=== PATIENT | male | born 1995 | race Caucasian/White ===

== ENCOUNTER 2024-04-10 08:58 | Emergency (ER) | payer BC, SELFPAY ==
--- NOTE | ~2024-04-10 | XR_ITS ---
EXAMINATION: XR chest 2V DATE: 04/10/2024 10:26 INDICATION: Left chest tightness. Acid reflux. TECHNIQUE: Frontal and lateral views of the chest were obtained. COMPARISON: None. FINDINGS: There is no pneumonia, pleural effusion, or pneumothorax. The heart size is normal. IMPRESSION: 1. No acute cardiopulmonary disease. Reviewed, dictated and finalized at location A. ON GR[facility]
[2024-04-10 09:07] VITALS: BP 136/84; PULSE 87; RESP 16; TEMP 37.1; O2SAT 98
--- NOTE | 2024-04-10 09:10 | ECG_ITS ---
Test Date: 2024-04-10 09:28:08 Measurements Intervals [place] Rate: 71 P: 25 IA: 172 QRS: 11 QRSD: 94 T: 17 QT: 376 QTc: 410 Interpretive Statements SINUS RHYTHM WITH SINUS ARRHYTHMIA VOLTAGE CRITERIA FOR LVH MINIMAL Q WAVES- HIGH LATERAL LEADS BORDERLINE ECG No previous ECG available for comparison Electronically Signed On 04-10-2024 09:37:16 SLEEVE PRESSER OPERATOR by Lucio Morillo D.O.
--- OUTSIDE RECORDS SUMMARY | 2024-04-10 09:37 | XMS_ITS | Clinical Summary ---
Author Organization [facility] Address [address] [place] [id number] Care Team Providers Care Nurses Director Name Role Phone Unavailable Primary Care Provider Unavailabl e Social History Tobacco Use Types Packs/Day Years Used Date Smoking Tobacco: Never Assessed Sex and Gender Information Value Date Recorded Sex Assigned at Not on file Legal Sex Male 12:23 PM GROUP LE[employer] Gender Identity Not on file Sexual Orientation Not on file Plan of Treatment Health Maintenance Due Date Last Done Comments Hepatitis C Virus (HCV) Screening 1996 Influenza Immunization (#1) 10/29/202310/28, 01/19/2015, 12/20/2013, Additional history exists SARS-COV-2 Immunization (2023- season) 2023 Respiratory Syncytial Virus (RSV) Immunization (Adult) (1 - 1-dose 75+ series) 08/20/2071 Hepatitis B Immunization Completed 997, 1996, 1996 Human Papillomavirus (HPV) Immunization Discontinued 08/23/2012, 03/01/2012, 12/22/2011 Meningococcal Immunization (ACWY) Completed 08/23/2012, 10/04/2007 DTaP/Tdap/Td Immunization Discontinued 2018, 10/04/2007, 06/23/2001, Additional history exists TdaP Immunization Completed 10/12/2018, 10/04/2007 Pneumococcal Immunization Combined Aged Out No longer eligible based on patient's age to complete this topic Rotavirus Immunization Aged Out No lo nger eligible based on patient's age to complete this topic
--- OUTSIDE RECORDS SUMMARY | 2024-04-10 09:37 | XMS_ITS | Clinical Summary ---
Author Organization [facility] Address [address] [place] [address] Care Team Providers Care Co Supervisor [employer] Name Role Phone Unavailable Primary Care Provider Unavailabl e Social History Tobacco Use Types Packs/Day Years Used Date Smoking Tobacco: Never Assessed Sex and Gender Information Value Date Recorded Sex Assigned at Not on file Legal Sex Male 8:32 PM CDT Gender Identity Not on file Sexual Orientation Not on file Plan of Treatment Health Maintenance Due Date Last Done Comments Annual Physical 08/20/1999 Hepatitis C 2014 DTaP, Tdap and Td Vaccines ( 1 - Tdap) 08/20/2015 Hepatitis B Vaccines (1 of 3 - 19+ 3-dose series) 08/20/2015 COVID-19 Vaccine (2023-2 5 season) 2023 Influenza Adult (#1) 2023 HPV Vaccines Aged Out No longer eligi ble based on patient's age to complete this topic Meningococcal B Vaccine Aged Out No l onger eligible based on patient's age to complete this topic Meningococcal Vaccine Aged Out No heladio omid eligible based on patient's age to complete this topic Pneumococcal Vaccine: Pediat rics (0 to 5 Years) and At-Risk Patients (6 to 64 Years) Aged Out No longer eligible b ased on patient's age to complete this topic RSV Immunizations Under 20 Months Aged Out No longer eligible based on patient's age to complete this topic
--- OUTSIDE RECORDS SUMMARY | 2024-04-10 09:37 | XMS_ITS | Data Portability ---
Author Organization [facility], Main Office Address [address] [place] [address] Assessment No assessment recorded. Plan of Treatment Reminders Order Date Submit Date Provider Last Modified By Organization Details Last Modified Time Details Appointments None recorded. Lab lipid panel, serum 2022 [facility] (Lab), [address] [place], [address], 20:13:25 TSH, serum or plasma 2022 023 [facility] (Lab), [address] [place], [address], 20:42:21 CBC w/ auto diff 2022 023 [facility] (Lab), [address] [place], [address], 20:01:25 vitamin B12 + folate, serum or blood 2022 023 [email or web address] [facility] (Lab), [address] [place], [address], 07:59:53 CMP, serum or plasma 2022 023 [facility] (Lab), [address] [place], [address], 20:13:21 [email or web address] obin, total, blood 2022 023 [facility] (Lab), [address], [place], [address], 21:02:07 Referral gastroenter ologist referral - Occurred in October over a period of 3 days. No issues since. Started on pepcid and bland diet and likely needs EGD. 2022 023 [email or web address] 3 Madiha Reynolds MD, [address], [address], [place], [address], 08:01:18 counseling referral 2022 023 [email or web address] 3 [facility], [address], [place], [address], 08:01:13 psychiatris t referral 2022 023 [email or web address] 3 [facility], [address] [place] [address] [address], [place], [address], 08:01:14 Procedures None recorded. Surgeries None recorded. Imaging None recorded. Medication Orders None recorded. Patient TargetsNo targets recorded. Patient Instructions Encounter Date Encounter Id Patient Instructions Last Modified By Organization Details Last Modified Time 11/29/2022 [id number] 2 mo fu insomnia , anxiety/depressio n, GI consult, lab review. [email or web address] Not available 11/29/2022 13:05:56 Reason for Referral Counseling Referral for Mixe d anxiety and depressive disorder Referring Physician: [facility], Encounter Date: 11/29/2022 Psychiatrist Referral for Mi xed anxiety and depressive disorder Referring Physician: [facility], Encounter Date: 11/29/2022 Engineering Agent Referral for Coffee ground vomiting Occurred in October over a period of 3 days. No issues since. Started on pepcid and bland diet and likely needs EGD. Referring Physician: [facility], Encounter Date: 11/29/2022 Results Created Date Observation Date Name Description Value Unit Range Abnormal Flag Note LastModifiedBy Organization Detail LastModifiedTime 12/03/1912/02/2022 CBC/C OMPLE TE BLD COUNT W/DIF F white blood cells 4.7 x10'3 /uL 4.2-10 .8 Not Available [facility] (Lab) [address] [place], [address], 12/02/2022 20:01:25 12/03/19 23 12/02/2022 CBC/C OMPLE TE BLD COUNT W/DIF F red blood cells 5.01 x10'6 /uL 4.10-5 .80 Not Available [facility] (Lab) [address] [place], [address], 12/02/2022 20:01:25 12/03/19 23 12/02/2022 CBC/C OMPLE TE BLD COUNT W/DIF F hemoglobin 15.4 g/dL 13.2-1 7.0 Not Available [facility] (Lab) [address] [place], [address], 12/02/2022 20:01:25 12/03/19 23 12/02/2022 CBC/C OMPLE TE BLD COUNT W/DIF F hematocrit 45.9 % 39.3-5 0.0 Not Available [facility] (Lab) [address] [place], [address], 12/02/2022 20:01:25 12/03/19 23 12/02/2022 CBC/C OMPLE TE BLD COUNT W/DIF F mean red cell volume 91.6 fL 80.0-9 7.0 Not Available [facility] (Lab) [address] [place], [address], 12/02/2022 20:01:25 12/03/19 23 12/02/2022 CBC/C OMPLE TE BLD COUNT W/DIF F mean red cell hemoglobin 30.7 pg 27.0-3 3.0 Not Available [facility] (Lab) [address] [place], [address], 12/02/2022 20:01:25 12/03/1912/02/2022 CBC/C OMPLE TE BLD COUNT W/DIF F mean RBC HGB concentratio n 33.6 g/dL 31.0-3 6.0 Not Available [facility] (Lab) [address] [place], [address], 12/02/2022 20:01:25 12/03/19 23 12/02/2022 CBC/C OMPLE TE BLD COUNT W/DIF F red cell distribution width 12.6 % 11.8-1 5.5 Not Available [facility] (Lab) [address] [place], [address], 12/02/2022 20:01:25 12/03/19 23 12/02/2022 CBC/C OMPLE TE BLD COUNT W/DIF F platelets 220 x10'3 /uL 150-40 0 Not Available [facility] (Lab) [address] [place], [address], 12/02/2022 20:01:25 12/03/19 23 12/02/2022 CBC/C OMPLE TE BLD COUNT W/DIF F mean platelet volume 11.6 fL 9.0-12 .4 Not Available [facility] (Lab) [address] [place], [address], 12/02/2022 20:01:25 12/03/19 23 12/02/2022 CBC/C OMPLE TE BLD COUNT W/DIF F neutrophils 50.4 % 39.0-7 2.0 Not Available [facility] (Lab) [address] [place], [address], 12/02/2022 20:01:25 12/03/19 23 12/02/2022 CBC/C OMPLE TE BLD COUNT W/DIF F lymphocytes 35.9 % 16.0-4 7.0 Not Available [facility] (Lab) [address] [place], [address], 12/02/2022 20:01:25 12/03/19 23 12/02/2022 CBC/C OMPLE TE BLD COUNT W/DIF F monocytes 9.5 % 5.0-12 .0 Not Available [facility] (Lab) [address] [place], [address], 12/02/2022 20:01:25 12/03/19 23 12/02/2022 CBC/C OMPLE TE BLD COUNT W/DIF F eosinophils 3.4 % 1.0-7. 0 Not Available [facility] (Lab) [address] [facility] [place], [address], 12/02/2022 20:01:25 12/03/19 23 12/02/2022 CBC/C OMPLE TE BLD COUNT W/DIF F basophils 0.6 % 0.0-2. 0 Not Available [facility] (Lab) [address] [place], [address], 12/02/2022 20:01:25 12/03/19 23 12/02/2022 CBC/C OMPLE TE BLD COUNT W/DIF F immature granulocytes 0.2 % 0.00-0 .50 Not Available [facility] (Lab) [address] [place], [address], 12/02/2022 20:01:25 12/03/19 23 12/02/2022 CBC/C OMPLE TE BLD COUNT W/DIF F neutrophils, absolute count 2.39 x10'3 /uL 1.5-8. 0 Not Available [facility] (Lab) [address] [place], [address], 12/02/2022 20:01:25 12/03/19 23 12/02/2022 CBC/C OMPLE TE BLD COUNT W/DIF F lymphocytes, absolute count 1.70 x10'3 /uL 1.07-3 .43 Not Available [facility] (Lab) [address] [place], [address], 12/02/2022 20:01:25 12/03/1912/02/2022 CBC/C OMPLE TE BLD COUNT W/DIF F monocytes, absolute count 0.45 x10'3 /uL 0.29-0 .99 Not Available [facility] (Lab) [address] [place], [address], 12/02/2022 20:01:25 12/03/1912/02/2022 CBC/C OMPLE TE BLD COUNT W/DIF F eosinophils, absolute count 0.16 x10'3 /uL 0.02-0 .53 Not Available [facility] (Lab) [address] [place], [address], 12/02/2022 20:01:25 12/03/1912/02/2022 CBC/C OMPLE TE BLD COUNT W/DIF F basophils, absolute count 0.03 x10'3 /uL 0.01-0 .08 Not Available [facility] (Lab) [address] [place], [address], 12/02/2022 20:01:25 12/03/1912/02/2022 CBC/C OMPLE TE BLD COUNT W/DIF F immature granulocytes ,absolute 0.01 x10'3 /uL 0.00-0 .05 Not Available [facility] (Lab) [address] [place], [address], 12/02/2022 20:01:25 12/03/1912/02/2022 CBC/C OMPLE TE BLD COUNT W/DIF F nucleated red blood cells 0.0 % -0 Not Available [facility] (Lab) [address] [place], [address], 12/02/2022 20:01:25 12/03/1912/02/2022 CBC/C OMPLE TE BLD COUNT W/DIF F NRBC# 0.00 x10'3 /uL Not Available [facility] (Lab) [address] [place], [address], 12/02/2022 20:01:25 12/03/19 23 12/02/2022 COMPR EHENS SUNIL METAB OLIC PANEL sodium 139 mmol/ L 137-14 5 Not Available [facility] (Lab) [address] [place], [address], 12/02/2022 20:13:21 12/03/1912/02/2022 COMPR EHENS SUNIL METAB OLIC PANEL potassium 4.9 mmol/ L 3.5-5. 1 Not Available [facility] (Lab) [address] [place], [address], 12/02/2022 20:13:21 12/03/19 23 12/02/2022 COMPR EHENS SUNIL METAB OLIC PANEL chloride 103 mmol/ L 98-107 Not Available [facility] (Lab) [address] [place], [address], 12/02/2022 20:13:21 12/03/19 23 12/02/2022 COMPR EHENS SUNIL METAB OLIC PANEL carbon dioxide 29 mmol/ L 22-30 Not Available [facility] (Lab) [address] [place], [address], 12/02/2022 20:13:21 12/03/19 23 12/02/2022 COMPR EHENS SUNIL METAB OLIC PANEL anion gap 11.9 mmol/ L 14-22 low Not Available [facility] (Lab) [address] [place], [address], 12/02/2022 20:13:21 12/03/19 23 12/02/2022 COMPR EHENS SUNIL METAB OLIC PANEL glucose 92 mg/dL 70-99 Not Available [facility] (Lab) [address] [place], [address], 12/02/2022 20:13:21 12/03/1912/02/2022 COMPR EHENS SUNIL METAB OLIC PANEL BUN 7 mg/dL 8-19 low Not Available [facility] (Lab) [address] [place], [address], 12/02/2022 20:13:21 12/03/19 23 12/02/2022 COMPR EHENS SUNIL METAB OLIC PANEL creatinine 0.86 mg/dL 0.66-1 .25 Not Available [facility] (Lab) [address] [place], [address], 12/02/2022 20:13:21 12/03/1912/02/2022 COMPR EHENS SUNIL METAB OLIC PANEL GFR >60 Refer ence Range : [place] [facility] GFR Healt hy Adult : >60 mL/mi n/1.7 3 m2 Chron ic Kidne y Disea se: 15-60 mL/mi n/1.7 3 m2 Kidne y Failu re: <15/m L/min /1.73 m2 www.n iddk. nih.g ov The MDRD study equat ion has not been valid ated in child alissa <18 years of age; pregn ant women ; the elder ly >85 years of age; or in some racia l or ethni c subgr oups, such as [employer]. Outsi de the valid ated irineo eters , estim ated GFR is less accur ate, requi ring clini clifford judgm ent on a case- by-ca se basis . Clini clifford inter preta tion for other races and ages must be made by the clini blane. The MDRD study equat ion has not been valid ated for the evalu ation of serum creat inine relat ed to nutri theron l statu s or medic ation usage . For perso ns <18 years of age, a pedia tric GFR calcu lator is avail able on the NK websi te: https ://zach w.renetta grullon.o rg/pr ofess ional s/kdo qi/gf r_cal culat or Not Available [facility] (Lab) [address] [place], [address], 12/02/2022 20:13:21 12/03/1912/02/2022 COMPR EHENS SUNIL METAB OLIC PANEL alkaline phosphatase 89 U/L 38-126 Not Available [facility] (Lab) [address] [place], [address], 12/02/2022 20:13:21 12/03/19 23 12/02/2022 COMPR EHENS SUNIL METAB OLIC PANEL alanine aminotransfe rase 29 U/L 0-50 Not Available [facility] (Lab) [address] [place], [address], 12/02/2022 20:13:21 12/03/1912/02/2022 COMPR EHENS SUNIL METAB OLIC PANEL aspartate aminotransfe rase 26 U/L 15-46 Not Available [facility] (Lab) [address] [place], [address], 12/02/2022 20:13:21 12/03/1912/02/2022 COMPR EHENS SUNIL METAB OLIC PANEL bilirubin, total 0.90 mg/dL 0.20-1 .30 Not Available [facility] (Lab) [address] [place], [address], 12/02/2022 20:13:21 12/03/19 23 12/02/2022 COMPR EHENS SUNIL METAB OLIC PANEL calcium 10.1 mg/dL 8.4-10 .2 Not Available [facility] (Lab) [address] [place], [address], 12/02/2022 20:13:21 12/03/19 23 12/02/2022 COMPR EHENS SUNIL METAB OLIC PANEL total protein 7.7 g/dL 6.3-8. 2 Not Available [facility] (Lab) [address] [place], [address], 12/02/2022 20:13:21 12/03/1912/02/2022 COMPR EHENS SUNIL METAB OLIC PANEL albumin 4.8 g/dL 3.4-5. 0 Not Available [facility] (Lab) [address] [place], [address], 12/02/2022 20:13:21 12/03/1912/02/2022 COMPR EHENS SUNIL METAB OLIC PANEL globulin 2.9 g/dL 2.6-4. 2 Not Available [facility] (Lab) [address] [place], [address], 12/02/2022 20:13:21 12/03/1912/02/2022 COMPR EHENS SUNIL METAB OLIC PANEL A/G ratio 1.7 ratio 1.0-2. 0 Not Available [facility] (Lab) [address] [place], [address], 12/02/2022 20:13:21 12/03/1912/02/2022 LIPID PANEL cholesterol 164 mg/dL 140-19 9 NIH ISSAC NSUS RECOM MENDA TION FOR LORNA STERO L: ADULT CHILD LOW RISK: <200 <170 BORDE RLINE : <200- 239 ----- HIGH RISK: >240 >200 Not Available [facility] (Lab) [address] [place], [address], 12/02/2022 20:13:25 12/03/1912/02/2022 LIPID PANEL triglyceride s 55 mg/dL 0-150 NIH ISSAC NSUS REPOR T RECOM MENDA TION FOR TRIGL YCERI TARA: ADULT CHILD LOW RISK: <150 ----- BODER LINE: 150-1 99 ----- HIGH RISK: >200 ----- Not Available [facility] (Lab) [address] [place], [address], 12/02/2022 20:13:25 12/03/19 23 12/02/2022 LIPID PANEL HDL cholesterol 47 mg/dL 40- Not Available [facility] (Lab) [address] [place], [address], 12/02/2022 20:13:25 12/03/19 23 12/02/2022 LIPID PANEL LDL cholesterol, calculated 106 mg/dL 0-130 NIH ISSAC NSUS REPOR T RECOM MENDA TIONS FOR LDL: ADULT CHILD LOW RISK <130 <110 (OPTI MAL LDL) <100 ----- BORDE RLINE : 130-1 59 ----- HIGH RISK: >160 >130 A TRIGL YCERI DE RESUL T >400 INVAL IDATE S THE CALCU LATIO N FOR LDL FRACT IONAT ION - THE LDL RESUL T WILL NOT BE REPOR MARINA. Not Available [facility] (Lab) [address] [place], [address], 12/02/2022 20:13:25 12/03/19 23 12/02/2022 TSH W/REF EVER FT4 TSH with reflex free T4 2.210 uIU/m L 0.465- 4.680 Not Available [facility] (Lab) [address] [place], [address], 12/02/2022 20:42:21 12/03/1912/02/2022 HEMOG LOBIN A1C HA1C 4.7 % 4.0-6. 0 Diabe samm Scree yaw Crite armando: <5.7% Consi stent with absen ce of diabe samm 5.7-6 .4% Consi stent with incre ased risk for diabe samm (pred iabet es) >OR=6 .5% Consi stent with diabe samm REFER ENCE: Diabe samm Care 2016, 39(Juan ppl.1 ):s13 -s22 Not Available [facility] (Lab) [address] [place], [address], 12/02/2022 21:02:07 12/03/19 23 12/02/2022 VITAM IN B12 (ACOSTA NORA ) vb12 744 pg/mL 239-93 1 Not Available [facility] (Lab) [address] [place], [address], 12/02/2022 21:09:01 12/03/1912/02/2022 FOLAT E, SERUM /PLAS MA folate 14.4 NG/mL 2.76-2 0.0 Not Available [facility] (Lab) [address] [place], [address], 12/02/2022 21:09:02 Result Notes None recorded. Problems Name Problem SNOMED Code Status Onset Date Resolution Date Notes Provider Name and Address Organization Details Recorded Time Indigestion 399080211 Active 2022 Johanna Chapa NP [address] [facility], [place], [address], Win[employer] 3 12:44:30 Impacted cerumen of bilateral ears 9278172145538 108 Active 2022 Johanna Chapa NP [address], [address], [place], [address], [employer] 3 12:47:55 Mixed anxiety and depressive disorder 781579878 Active 2022 Johanna Chapa NP [address], [address], [place], [address], [employer] 3 12:50:01 Coffee ground vomiting 74269920 Active 2022 Johanna Chapa NP [address], [address], [place], [address], [employer] 3 13:01:30 Problem Notes None recorded. Medical Equipment None Reported. Allergies No known drug allergies Medications Name Sig Start Date Stop Date Status Note LastModified by Organization Details LastModified Time clindamycin HCl 300 mg capsule TAKE 1 CAPSULE BY MOUTH TWICE A DAY FOR 10 DAYS 11/29 completed Not Available Not Available Not Available omeprazole 20 mg capsule,taryn yed release TAKE 1 CAPSULE BY MOUTH ONCE DAILY BEFORE A MEAL active Not Available Not Available No t Available Vitals Date Recorded Body weight Body mass index (BMI) Body height Body temperature Heart rate Oxygen saturation Oxygen saturation in Arterial blood by Pulse oximetry Pain severity - 0-10 verbal numeric rating [Score] - Reported Systolic blood pressure Diastolic blood pressure Provider Name and Address Organization Details Last Updated DateTime 00309.3 4 g 24.7 kg/m2 177.8 cm 96.6 [degF] 71 /min 98 % 98 % 0 118 mm[Hg] 78 mm[Hg] Johanna Joseph RN [facility] [employer] 12:24:12 Date Recorded Body height Provider Name an d Address Organization Details Last Updated DateTime 12/02/2022 177.8 cm Hawa Leija MA [facility] [employer] 12/02/2022 15:28:44 Social History Question Answer Notes LastModified by Organization Details LastModified Time Tobacco Smoking Status Former Smoker Johanna Joseph RN [facility], [facility] [employer] 11/29/2022 12:26:34 Do You Have An Advance Directive? No Information not available 11/29/2022 What Is Your Level Of Alcohol Consumption? Moderate Information not available 11/29/2022 Is Blood Transfusion Acceptable In An Emergency? Yes Information not available 11/29/2022 What Is Your Level Of Caffeine Consumption? Moderate Dr. Alcaraz Information not available 11/29/2022 What Is Your Code Status? Full Code Information not available 11/29/2022 In The 14 Days Before Symptom Onset, Have You Had Close Contact With A Laboratory-conf irmed COVID-19 While That Case Was Ill? No Information not available 11/29/2022 In The 14 Days Before Symptom Onset, Have You Had Close Contact With A Person Who Is Under Investigation For COVID-19 While That Person Was Ill? No Information not available 11/29/2022 Are You Currently Employed? No Information not available 11/29/2022 What Type Of Diet Are You Following? REGULAR Information not available 11/29/2022 Which Illicit Or Recreational Drugs Have You Used? Mj Information not available 11/29/2022 Do You Or Have You Ever Used E-cigarettes Or Vape? Former User Of Electronic Cigarettes Information not available 11/29/2022 Have There Been Any Changes To Your Family Or Social Situation? No Information not available 11/29/2022 When Did You Quit Smoking? 1-5yearssincelastc igarette Information not available 11/29/2022 Do You Use Insect Repellent Routinely? No Information not available 11/29/2022 Where Do You Live? SingleLevelHouse Information not available 11/29/2022 Do You Have A Medical Power Of Record Changer? No Information not available 11/29/2022 How Many Children Do You Have? 0 Information not available 11/29/2022 Do You Have Any Pets? Yes Information not available 11/29/2022 What Is Your Relationship Status? Single Information not available 11/29/2022 Do You Use Your Seat Belt Or Car Seat Routinely? Yes Information not available 11/29/2022 Do You Have Smoke And Carbon Monoxide Detectors In Your Home? Yes Information not available 11/29/2022 At What Age Did You Start Smoking Tobacco? 21 Information not available 11/29/2022 Are There Any Smokers In Your House? No Information not available 11/29/2022 Do You Participate In Social Media? Yes Information not available 11/29/2022 Do You Feel Stressed (tense, Restless, Nervous, Or Anxious, Or Unable To Sleep At Night)? [id number] Information not available 11/29/2022 Do You Use Any Illicit Or Recreational Drugs? Yes Information not available 11/29/2022 Have You Recently Traveled Abroad? No Information not available 11/29/2022 Are You Currently In School? No Information not available 11/29/2022 Do You Or Have You Ever Used Any Other Forms Of Tobacco Or Nicotine? Yes Occassional Information not available 11/29/2022 Sex: Unknown Functional Status Question Answer Note LastModified by Organization D etails LastModified Time What is your exercise level? None Information not available 11/29/2022 Mental Status None recorded. Family History Relationship Description Onset Age of this Age Resolved Age Notes LastModified by Organization Details LastModified Time Father Malignant tumor of testis 30 [email or web address] Not available 2022 12:34:35 Maternal Grandfather Malignant tumor of prostate [email or web address] Not available 2022 12:35:04 Maternal Grandfather Essential hypertension [email or web address] Not available 04/2022 12:35:53 Maternal Grandmother Essential hypertension [email or web address] Not available 04/2022 12:35:53 Paternal Grandfather Essential hypertension [email or web address] Not available 04/2022 12:35:53 Paternal Grandmother Essential hypertension [email or web address] Not available 04/2022 12:35:53 Medical History Condition Response BLINDNESS N RHEUMATIC FEVER N KIDNEY STONES N BLADDER PROBLEMS N MRSA N OTHER # 1 N POLIO N LUNG DISEASE/DISORDER N HISTORY OF DRUG ABUSE N RADIATION / CHEMOTHERAPY N COPD N Other # 2 N BLOOD DISEASES N SURGERY N EAR OR HEARING PROBLEMS N MUMPS N SHINGLES N BOWEL PROBLEMS N FEMALE PROBLEMS / INFECTIONS N DEPRESSION (INCLUDING POST ) N FAILED BACK SYNDROME N STROKE/TIA N THYROID DISEASE N ULCERS N BENIGN PROSTATIC HYPERPLASIA N MEASLES N CERVICALGIA N HYPOTENSION N TB SKIN TEST N MYOCARDIAL INFARCTION N PARAPELGIA N OBESITY N GERD/NAUSEA N ANEURYSM N URINARY/BLADDER/KIDNEY PROBLEMS N CORONARY ARTERY DISEASE (CAD) N MENIERE'S DISEASE N Do you have Advance directive? N ADDICTION CONCERNS N ENDOMETRIOSIS N USE OF BLOOD THINNERS N SKIN PROBLEMS N EMPHYSEMA N GASTROINTESTINAL DISORDER N PERIPHERAL ARTERY DISEASE N MUSCLE,JOINT OR BONE PROBLEMS N GASTROINTESTINAL BLEEDING N BLOOD CLOTS N ASTHMA N Abdominal Pain N CATARACTS N ARTERIAL INSUFFICIENCY N ERECTILE DYSFUNCTION N GI PROBLEMS N CHF N Low Testosterone N NEUROPATHY N INFERTILITY N AIDS/HIV N FRACTURES N CHEMOTHERAPY / RADIATION N VISION/EYE PROBLEMS N LIVER DISEASE N HYPERTENSION N TOURETTE'S N ANXIETY DISORDER N BLOOD TRANSFUSION N ANEMIA/BLOOD DISORDER N CHRONIC EAR INFECTIONS N BRONCHITIS N TUBERCULOSIS N GLAUCOMA N FOOT PROBLEM N DIVERTICULITIS N CHICKENPOX N SLEEP APNEA N BACK INJECTIONS N ALLERGIES/HAYFEVER N INFECTIOUS DISEASE N HEART ARRHYTHMIA N PROSTATE N ESRD N INSOMNIA N HIGH CHOLESTEROL / HYPERLIPIDEMIA N HYPERTHYROIDISM N EYE PROBLEMS N PVD N EATING DISORDER N EDEMA N CHRONIC PAIN SYNDROME N CAROTID BLOCKAGE N CONSTIPATION N BACK / NECK PROBLEMS N HAVE YOU BEEN HOSPITALIZED OR SEEN IN [facility] IN THE PAST YEAR ? N ATHEROSCLEROSIS N BREAST PROBLEMS N DIALYSIS N POLYCYSTIC OVARIES N ECZEMA N FIBROMYALGIA N OSTEOPOROSIS N ARTHRITIS N NO SIGNIFICANT PAST MEDICAL HISTORY N APPENDICITIS N DIABETES, TYPE N BAD TEETH N VON WILLIBRAND'S DISEASE N HEARTBURN / REFLUX N ADD/ADHD N AUTISM SPECTRUM DISORDER (ASD) N POST LAMINECTOMY SYNDROME N HEPATITIS / LIVER DISEASE N PULMONARY DISEASE N GOUT N SLEEP DISORDER N ALZHEIMER'S DISEASE N PAIN N HERPES N DEMENTIA N HEADACHES/MIGRAINES N SEIZURES/EPILEPSY N VASCULAR DISEASE N PACEMAKER N DIZZINESS N HEART DISEASE/HEART PROBLEMS N KIDNEY DISEASE N DEVELOPMENTAL OR BEHAVIORAL DISORDERS N MULTIPLE SCLEROSIS N SCARLET FEVER N MENTAL DISORDER/ILLNESS N NEUROPSYCHOLOGICAL N CARDIAC ARRHYTHMIA N CANCER: SPECIFY N PNEUMONIA N ATRIAL FIBRILLATION N Gall Stones N PULMONARY EMBOLISM N AUTOIMMUNE DISEASE N Immunizations Vaccine Type Date Status Note Provider Nam e and Address Organization Details Recorded Time Tdap 11/29/2022 completed ANDRZEJ Lofton, [facility] [employer] [facility] 11/29/2022 14:34:18 Influenza, split virus, quadrivalent, PF 11/29/2022 completed ANDRZEJ Lofton, [facility] [employer] 11/29/2022 14:34:18 Past Encounters Encounter ID Performer Location Encounter Start Date Encounter Closed Date Diagnosis/Indication Diagnosis SNOMED-CT Code Diagnosis ICD10 Code Diagnosis Note [id number] Johanna Chapa NP [facility] [address] [address] 11/29/2022 12:14:14 11/29/2022 13:51:14 Administration of diphtheria, pertussis, and tetanus vaccine 598222208 Z23 Administra tion of influenza vaccine 37271090 Z23 Indigestion 021706207 K3 0 start on pepcid once daily. If that doesn't work, will need to eat bland diet. Impacted c erumen of bilateral ears 4682218420 813598 H61.23 treat at home. Anemia screening 3708975 07 Z13.0 Diabetes m ellitus screening 560182291 Z13.1 Thyroid di sorder screening 412942894 Z13.29 Hyperlipid emia screening 381168907 Z13.220 Mixed anxi ety and depressive disorder 655670749 F41.8 Counseling referral- pt to check insurance for options. Coffee chadd und vomiting 26864657 K92.0 referring to gi [id number] Johanna Chapa NP [facility] [address] [address] 12/02/2022 14:14:44 12/02/2022 15:29:05 Health Concerns Section Related Observation LastModified by Organization Detai ls LastModified Time None Recorded Concern Status LastModified by Organization Details LastModified Time None Recorded Advance Directives Directive N: Payers Encounter Date Sequence Insurance Name Policy Number Policy [place] Covered Member ID [place] Member ID Guarantor Name 11/29/2022 1 [facility] (MEDICAID REPLACEMENT - O) [id number] Reg Crawford [id number] Reg Crawford 12/02/2022 1 [facility] (MEDICAID REPLACEMENT - HMO) [id number] [employer] [id number] Reg Crawford Notes Date Note Type Note Provider Name and Address Organization Details Recorded Time 11/29/2022 text/html Here for new patient appt.Here today with father. Vaccines up to date per patient.Last labs- never. Sleep- not getting solid 8 hours sleep. No routine of wake and sleep. Has a lot of screen time. Issues for many years.Caffeine- Dr. Alcaraz, some days none, some days 4 cans. Monster once weekly. States here primarily for stomach. 1 mo ago. States for whole life will feel like stomach is burning which leads to dry heaving and foam and stomach acid coming out. Recently, symptoms returned intensely. Hasn't eaten for a few days. Did go on a trip to [place] and was vomiting a lot. Had some dark brown vomitus that resembled coffee grounds and then it just stopped after 1 hour. Did not seek ER/UC. Occasional diarrhea- no cause related. Did have several beer when episode began.States during this time MJ use was consistent, not more or less than normal.Has not had symptoms since that time.Does get these symptoms or episodes once monthly and lasts a few days. job- unemployed. Was going to school online, but stopped. Anxiety/depressio n- Started in highschool. lots going on . Has talked with others in the past but never committed to therapy. Father states he has issues and therefore is unemployed. Never been on meds and no thoughts of Si/HI. Still wanting to finish school, was doing online program through [employer] and states it's the only program that makes sense right now . Father has some concerns that in person schooling would be more beneficial. Johanna Chapa NP [address] [facility], [facility] [address], [place], [address], [facility] [employer] 11/29/2022 13:07:31
[2024-04-10] MEDS: FAMOTIDINE 20 MG TABLET PO (09:55)
[2024-04-10] MEDS: BELLADONNA ALK/PHENOB ELIX 10 ML, MAG HYDROX/ALUMINUM HYD/SIMETH 30 ML, LIDOCAINE 2% VI... PO (09:55)
[2024-04-10 10:05] VITALS: BP 132/79; PULSE 68; RESP 14; O2SAT 98
[2024-04-10 10:15] LABS: Basophils Absolute Auto 0.1 K/mm3 (0.0-0.1); Basophils Percent Auto 0.8 % (0.2-1.2); Eosinophils Absolute Auto 0.1 K/mm3 (0-0.3); Eosinophils Percent Auto 1.2 % (0-4.4); Hemoglobin 14.2 g/dL (14.0-18.0); Immature Granulocyte Absolute 0.01 K/mm3 (0.00-0.031); Immature Granulocyte Percent A 0.1 % (0-0.5); Lymphocytes Absolute Auto 1.49 K/mm3 (0.9-3.2); Mean Corpuscular HGB Conc 34.6 g/dl (32-36); Mean Corpuscular Hemoglobin 29.8 pg (26-34); Mean Platelet Volume 10.3 fl (7.4-10.4); Monocytes Absolute Auto 0.6 K/mm3 (0.1-0.6); Monocytes Percent Auto 8.2 % (2.6-8.5); Neutrophils Absolute Auto 5.2 K/mm3 (1.3-6.7); Neutrophils Percent Auto 69.7 % (45.5-73.1); Platelet Count Result 250 k/mm3 (150-375); Red Blood Count 4.77 M/mm3 (4.6-6.20); Red Cell Distribution Width 12.5 % (11.5-14.5); White Blood Count 7.4 K/mm3 (4.5-10.0)
--- NOTE | 2024-04-10 10:18 | ED_ITS ---
HPI - Extremity Problem General Chief complaint: Extremity Problem,Nontraumatic Stated complaint: LUE numb Time Seen by Provider: 04/10/24 09:10 Source: patient Mode of arrival: ambulatory Limitations: no limitations History of Present Illness HPI Narrative: Patient is a 28-year-old male who presents to the ED with report of tingling sensation in his left chest and left arm. Patient reports having a numb/tingling sensation throughout his left arm and left-sided chest since last night. States because symptoms were persistent today, he went to an urgent care was referred here for further evaluation. He does report having some tightness in his left-sided chest. Reports discomfort in his lower chest/upper abdomen, described as a burning/acid feeling. He does have history of acid reflux and has previously been on medication for this, but is not currently taking anything. Denies shortness of breath. Denies recent cough or cold symptoms. Denies pain or swelling in legs. Related Data Allergies Allergy/AdvReac Type Severity Reaction Status Date / Time Cultivated Oat Pollen Allergy Mild Uncoded 03/13/16 14:10 Molds and Smuts Allergy Mild Uncoded 03/13/16 14:10 NKDA Allergy Mild Uncoded 03/16/09 17:50 [place] Allergy Mild Uncoded 03/13/16 14:10 PET DANDER Allergy Mild Uncoded 03/16/09 17:50 Review of Systems 2 Review of Systems: All systems reviewed & are unremarkable except as noted in HPI. All systems reviewed & are unremarkable except as noted in HPI and below PMFSH Social History Social History Smoking status: Never smoker Alcohol intake: current Exam 2 Narrative: GENERAL: Well appearing, well-nourished, non-toxic, in no acute distress. HEAD: Normocephalic, atraumatic. RESPIRATORY: Airway patent, respirations nonlabored. Clear to auscultation bilaterally, no rales, rhonchi, wheezing. CARDIOVASCULAR: Regular rate and rhythm without murmurs, rubs, or gallops. Radial pulses intact. ABDOMINAL: Soft, no significant tenderness throughout abdomen, nondistended. Normoactive BS. MUSCULOSKELETAL: Moves all extremities. No gross deformities. Sensation is intact throughout left upper extremity. Sensation is equal throughout upper extremities bilaterally. Normal extinction. No weakness of left upper extremity. No chest wall tenderness to palpation. Equal cosmetic maker strength bilaterally. No peripheral edema. SKIN: Warm, dry, normal color. NEURO: A&O X3. Speech clear. Cranial nerves II-XII grossly intact. Steady gait. No ataxic movements. No focal neurologic deficits. PSYCHIATRIC: Appropriate mood and affect. Normal interaction. Course Vital Signs Vital signs: Vital Signs Temperature 98.7 F 04/10/24 09:07 Pulse Rate 87 04/10/24 09:07 Respiratory Rate 16 04/10/24 09:07 Blood Pressure 136/84 04/10/24 09:07 Pulse Oximetry 98 04/10/24 09:07 Oxygen Delivery Room Air 04/10/24 09:07 Temperature 97.7 F 04/10/24 11:02 Pulse Rate 72 04/10/24 11:02 Respiratory Rate 15 04/10/24 11:02 Blood Pressure 131/83 04/10/24 11:02 Pulse Oximetry 97 04/10/24 11:02 Oxygen Delivery Room Air 04/10/24 09:07 MDM - Extremity (Nontraumatic) MDM Narrative Medical decision making narrative: Patient presented to ED with paresthesias throughout left arm and chest. Began last night. Some chest tightness. Also reporting acid reflux symptoms. Vital signs are stable upon arrival. Patient is in no acute distress. Neurologically intact upon my exam. No focal deficits or focal sensory discrepancies on exam. Sensation is the same on both arms throughout. EKG is without ST changes. Troponin undetectable. PERC negative, denying any resp complaints/SOB, no evidence of DVT on exam. Basic laboratory studies are unremarkable. Chest x- ray is clear. Given Pepcid and GI cocktail in the ED. On re-evaluation, patient is feeling improved. Acid reflux symptoms are significantly improved. Paresthesias still very minimally present. Remains neurologically intact. Discussed possibility of nerve compression/anxiety/musculoskeletal etiology. Feel patient is safe for d/c home. Recommended close follow-up with PCP for further evaluation. Will prescribe omeprazole for acid reflux management. Discussed strict return precautions. Patient and family in agreement with plan. Discharged in stable condition. Medical Records Attestation: I reviewed the patient's medical records. Lab Data Attestation: I reviewed the patient's lab results. 04/10/24 10:08 04/10/24 10:09 Labs: Lab Results 04/10/24 04/10/24 Range/Units 10:08 10:09 WBC 7.4 (4.5-10.0) K/mm3 RBC 4.77 (4.6-6.20) M/mm3 Hgb 14.2 (14.0-18.0) g/dL Hct 41.0 L (42.0-52.0) % MCV 86.0 (80-100) fl MCH 29.8 (26-34) pg MCHC 34.6 (32-36) g/dl RDW 12.5 (11.5-14.5) % Plt Count 250 (150-375) k/mm3 MPV 10.3 (7.4-10.4) fl Immature Gran % (Auto) 0.1 (0-0.5) % Neut % (Auto) 69.7 (45.5-73.1) % Lymph % (Auto) 20.0 (18.3-44.2) % [place] % (Auto) 8.2 (2.6-8.5) % Eos % (Auto) 1.2 (0-4.4) % Baso % (Auto) 0.8 (0.2-1.2) % Lymph # (Auto) 1.49 (0.9-3.2) K/mm3 [place] # (Auto) 0.6 (0.1-0.6) K/mm3 Eos # (Auto) 0.1 (0-0.3) K/mm3 Baso # (Auto) 0.1 (0.0-0.1) K/mm3 Abs Immat Gran (auto) 0.01 (0.00-0.031) K/mm3 Absolute Neuts (auto) 5.2 (1.3-6.7) K/mm3 Absolute Nucleated RBC 0.000 (0.0-0.012) K/mm3 Nucleated RBC % 0.0 (0.0-0.2) % Sodium 140 (137-145) mmol/L Potassium 3.7 (3.4-5.0) mmol/L Chloride 102 (98-107) mmol/L Carbon Dioxide 23 (22-30) mmol/L Anion Gap 15 H (4-12) mmol/L BUN 10 (9-20) mg/dL Creatinine 0.63 L (0.7-1.3) mg/dL Estim Creat Clear Calc 155 ml/min Estimated GFR > 60 (59 - ) Glucose 88 (65-110) mg/dL Calcium 9.7 (8.4-10.2) mg/dL Total Bilirubin 1.0 (0.2-1.3) mg/dL AST 36 (17-59) U/L ALT 45 (6-50) U/L Alkaline Phosphatase 93 (38-126) U/L Troponin I < 0.012 (0.000-0.034) ng/mL Total Protein 8.0 (6.3-8.2) g/dL Albumin 4.6 (3.5-5.1) g/dL Imaging Data Attestation: I personally reviewed and interpreted this imaging study as follows: Radiologist's impression: ITS Impressions Chest X-Ray 04/10/24 10:27 IMPRESSION: 1. No acute cardiopulmonary disease. ECG Data EKG #1: Attestation EKG: I personally reviewed and interpreted this ECG as follows: ECG completion date: 04/10/24 ECG completion time: 09:28 EKG Interpretation: normal rate (71), sinus rhythm (Sinus arrhythmia) and no ST changes Discharge Plan Discharge Clinical Impression: Paresthesia of left arm GERD (gastroesophageal reflux disease) Qualifiers: Esophagitis presence: without esophagitis Qualified Code(s): K21.9 - Gastro- esophageal reflux disease without esophagitis Patient Disposition: Home, Self-Care Condition: Stable Instructions: Antibiotic Form, GERD (Gastroesophageal Reflux Disease) (ED), Paresthesia (ED) Additional Instructions: Your workup here was reassuring. Continue to monitor symptoms. Recommend omeprazole daily for acid reflux. Follow-up closely with your primary care doctor for further evaluation. Return to the ED if you experience worsening or severe symptoms, persistent numbness, severe chest pain, difficulty breathing, unable to keep down food or drink, or any other symptoms of concern. Patient Language: Spanish Prescriptions: New omeprazole 10 mg capsule,delayed release(DR/EC) 10 mg PO DAILY Qty: 30 0RF Follow-up/Referrals: UNKNOWN,DOCTOR [Primary Care Provider] - Time of Disposition: 10:55
[2024-04-10 10:30] LABS: Alanine Aminotransferase 45 U/L (6-50); Albumin Level 4.6 g/dL (3.5-5.1); Alkaline Phosphatase 93 U/L (38-126); Anion Gap 15 mmol/L (4-12); Aspartate Amino Transferase 36 U/L (17-59); Blood Urea Nitrogen 10 mg/dL (9-20); Calcium 9.7 mg/dL (8.4-10.2); Carbon Dioxide 23 mmol/L (22-30); Chloride 102 mmol/L (98-107); Estimated CRCL calculation 155 ml/min; Estimated Glomerular Filt Rate > 60; Glucose 88 mg/dL (65-110); Potassium 3.7 mmol/L (3.4-5.0); Sodium 140 mmol/L (137-145)
--- OUTSIDE RECORDS SUMMARY | 2024-04-10 10:31 | XMS_ITS | Clinical Summary ---
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
--- OUTSIDE RECORDS SUMMARY | 2024-04-10 10:31 | XMS_ITS | Clinical Summary ---
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
[2024-04-10 10:40] LABS: Troponin I < 0.012 ng/mL (0.000-0.034)
[2024-04-10 11:02] VITALS: BP 131/83; PULSE 72; RESP 15; TEMP 36.5; O2SAT 97
== END 2024-04-10 11:03 | disposition home or self-care (01) ==
PROVIDERS: Emergency Provider Physician Assistant
DX: R20.2 Paresthesia of skin (principal); K21.9 Gastro-esophageal reflux disease without esophagitis; R94.31 Abnormal electrocardiogram [ECG] [EKG]
CPT/HCPCS: 36415; 71046; 80053; 84484; 85025; 93005; 99284; A9270

== ENCOUNTER 2025-01-11 08:54 | Emergency (ER) | payer BC, SELFPAY ==
--- OUTSIDE RECORDS SUMMARY | 2025-01-11 08:56 | XMS_ITS | Data Portability ---
Author Organization [facility], Main Office Address [address] [place] [address] Assessment No assessment recorded. Plan of Treatment Reminders Order Date Submit Date Provider Last Modified By Organization Details Last Modified Time Details Appointments None recorded. Lab lipid panel, serum 2022 [facility] (Lab), [address] [place], [address], 20:13:25 TSH, serum or plasma 2022 023 [facility] (Lab), [address] [place], [address], 20:42:21 CBC w/ auto diff 2022 023 [facility] (Lab), [address] [place], [address], 20:01:25 vitamin B12 + folate, serum or blood 2022 023 [email or web address] [facility] (Lab), [address] [place], [address], 07:59:53 CMP, serum or plasma 2022 023 [facility] (Lab), [address] [place], [address], 20:13:21 [email or web address] obin, total, blood 2022 023 [facility] (Lab), [address], [place], [address], 21:02:07 Referral gastroenter ologist referral - Occurred in October over a period of 3 days. No issues since. Started on pepcid and bland diet and likely needs EGD. 2022 023 [email or web address] 3 Madiha Reynolds MD, [address], [address], [place], [address], 08:01:18 counseling referral 2022 023 [email or web address] 3 [facility], [address], [place], [address], 08:01:13 psychiatris t referral 2022 023 [email or web address] 3 [facility], [address] [place] [address] Dr, [place], [address], 08:01:14 Procedures None recorded. Surgeries None recorded. Imaging None recorded. Medication Orders None recorded. Patient TargetsNo targets recorded. Patient Instructions Encounter Date Encounter Id Patient Instructions Last Modified By Organization Details Last Modified Time 11/29/2022 [id number] 2 mo fu insomnia , anxiety/depressio n, GI consult, lab review. [email or web address] Not available 11/29/2022 13:05:56 Reason for Referral Counseling Referral for Mixe d anxiety and depressive disorder Referring Physician: [facility], Encounter Date: 11/29/2022 Psychiatrist Referral for Mi xed anxiety and depressive disorder Referring Physician: [facility], Encounter Date: 11/29/2022 Meat Packager Referral for Coffee ground vomiting Occurred in [...] 4.7 x10'3 /uL 4.2-10 .8 Not Available [facility] (Lab) [address] [place], [address], 12/02/2022 20:01:25 12/03/19 23 12/02/2022 CBC/C OMPLE TE BLD COUNT W/DIF F red blood cells 5.01 x10'6 /uL 4.10-5 .80 Not Available [facility] (Lab) [address] [place], [address], 12/02/2022 20:01:25 12/03/19 23 12/02/2022 CBC/C OMPLE TE BLD COUNT W/DIF F hemoglobin 15.4 g/dL 13.2-1 7.0 Not Available [facility] (Lab) [address] [place], [address], 12/02/2022 20:01:25 12/03/19 23 12/02/2022 CBC/C OMPLE TE BLD COUNT W/DIF F hematocrit 45.9 % 39.3-5 0.0 Not Available [facility] (Lab) [address] [place], [address], 12/02/2022 20:01:25 12/03/19 23 12/02/2022 CBC/C OMPLE TE BLD COUNT W/DIF F mean red cell volume 91.6 fL 80.0-9 7.0 Not Available [facility] (Lab) [address] [place], [address], 12/02/2022 20:01:25 12/03/19 23 12/02/2022 CBC/C OMPLE TE BLD COUNT W/DIF F mean red cell hemoglobin 30.7 pg 27.0-3 3.0 Not Available [facility] (Lab) [address] [place], [address], 12/02/2022 20:01:25 12/03/19 23 12/02/2022 CBC/C OMPLE TE BLD COUNT W/DIF F mean RBC HGB concentratio n 33.6 g/dL 31.0-3 6.0 Not Available [facility] (Lab) [address] [facility] [place], [address], 12/02/2022 20:01:25 12/03/19 23 12/02/2022 CBC/C OMPLE TE BLD COUNT W/DIF F red cell distribution width 12.6 % 11.8-1 5.5 Not Available [facility] (Lab) [address] [place], [address], 12/02/2022 20:01:25 12/03/19 23 12/02/2022 CBC/C OMPLE TE BLD COUNT W/DIF F platelets 220 x10'3 /uL 150-40 0 Not Available [facility] (Lab) [address] [place], [address], 12/02/2022 20:01:25 12/03/19 23 12/02/2022 CBC/C OMPLE TE BLD COUNT W/DIF F mean platelet volume 11.6 fL 9.0-12 .4 Not Available [facility] (Lab) [address] [place], [address], 12/02/2022 20:01:25 12/03/19 23 12/02/2022 CBC/C OMPLE TE BLD COUNT W/DIF F neutrophils 50.4 % 39.0-7 2.0 Not Available [facility] (Lab) [address] [place], [address], 12/02/2022 20:01:25 12/03/19 23 12/02/2022 CBC/C OMPLE TE BLD COUNT W/DIF F lymphocytes 35.9 % 16.0-4 7.0 Not Available [facility] (Lab) [address] [place], [address], 12/02/2022 20:01:25 12/03/19 23 12/02/2022 CBC/C OMPLE TE BLD COUNT W/DIF F monocytes 9.5 % 5.0-12 .0 Not Available [facility] (Lab) [address] [place], [address], 12/02/2022 20:01:25 12/03/19 23 12/02/2022 CBC/C OMPLE TE BLD COUNT W/DIF F eosinophils 3.4 % 1.0-7. 0 Not Available [facility] (Lab) [address] [place], [address], 12/02/2022 20:01:25 12/03/1912/02/2022 CBC/C OMPLE TE BLD COUNT W/DIF F basophils 0.6 % 0.0-2. 0 Not Available [facility] (Lab) [address] [place], [address], 12/02/2022 20:01:25 12/03/1912/02/2022 CBC/C OMPLE TE BLD COUNT W/DIF F immature granulocytes 0.2 % 0.00-0 .50 Not Available [facility] (Lab) [address] [place], [address], 12/02/2022 20:01:25 12/03/19 23 12/02/2022 CBC/C OMPLE TE BLD COUNT W/DIF F neutrophils, absolute count 2.39 x10'3 /uL 1.5-8. 0 Not Available [facility] (Lab) [address] [place], [address], 12/02/2022 20:01:25 12/03/19 23 12/02/2022 CBC/C OMPLE TE BLD COUNT W/DIF F lymphocytes, absolute count 1.70 x10'3 /uL 1.07-3 .43 Not Available [facility] (Lab) [address] [place], [address], 12/02/2022 20:01:25 12/03/19 23 12/02/2022 CBC/C OMPLE TE BLD COUNT W/DIF F monocytes, absolute count 0.45 x10'3 /uL 0.29-0 .99 Not Available [facility] (Lab) [address] [place], [address], 12/02/2022 20:01:25 12/03/1912/02/2022 CBC/C OMPLE TE BLD COUNT W/DIF F eosinophils, absolute count 0.16 x10'3 /uL 0.02-0 .53 Not Available [facility] (Lab) [address] [place], [address], 12/02/2022 20:01:25 12/03/19 23 12/02/2022 CBC/C OMPLE TE BLD COUNT W/DIF F basophils, absolute count 0.03 x10'3 /uL 0.01-0 .08 Not Available [facility] (Lab) [address] [place], [address], 12/02/2022 20:01:25 12/03/1912/02/2022 CBC/C OMPLE TE BLD COUNT W/DIF F immature granulocytes ,absolute 0.01 x10'3 /uL 0.00-0 .05 Not Available [facility] (Lab) [address] [place], [address], 12/02/2022 20:01:25 12/03/1912/02/2022 CBC/C OMPLE TE BLD COUNT W/DIF F nucleated red blood cells 0.0 % -0 Not Available [facility] (Lab) [address] [place], [address], 12/02/2022 20:01:25 12/03/19 23 12/02/2022 CBC/C OMPLE TE BLD COUNT W/DIF F NRBC# 0.00 x10'3 /uL Not Available [facility] (Lab) [address] [place], [address], 12/02/2022 20:01:25 12/03/19 23 12/02/2022 COMPR EHENS SUNIL METAB OLIC PANEL sodium 139 mmol/ L 137-14 5 Not Available [facility] (Lab) [address] [place], [address], 12/02/2022 20:13:21 12/03/1912/02/2022 COMPR EHENS SUNIL METAB OLIC PANEL potassium 4.9 mmol/ L 3.5-5. 1 Not Available [facility] (Lab) [address] [place], [address], 12/02/2022 20:13:21 12/03/1912/02/2022 COMPR EHENS SUNIL METAB OLIC PANEL chloride 103 mmol/ L 98-107 Not Available [facility] (Lab) [address] [place], [address], 12/02/2022 20:13:21 12/03/19 23 12/02/2022 COMPR EHENS SUNIL METAB OLIC PANEL carbon dioxide 29 mmol/ L 22-30 Not Available [facility] (Lab) [address] [place], [address], 12/02/2022 20:13:21 12/03/19 23 12/02/2022 COMPR EHENS SUNIL METAB OLIC PANEL anion gap 11.9 mmol/ L 14-22 low Not Available [facility] (Lab) [address] [place], [address], 12/02/2022 20:13:21 12/03/19 23 12/02/2022 COMPR EHENS SUNIL METAB OLIC PANEL glucose 92 mg/dL 70-99 Not Available [facility] (Lab) [address] [facility] [place], [address], 12/02/2022 20:13:21 12/03/1912/02/2022 COMPR EHENS SUNIL METAB OLIC PANEL BUN 7 mg/dL 8-19 low Not Available [facility] (Lab) [address] [place], [address], 12/02/2022 20:13:21 12/03/19 23 12/02/2022 COMPR EHENS SUNIL METAB OLIC PANEL creatinine 0.86 mg/dL 0.66-1 .25 Not Available [facility] (Lab) [address] [place], [address], 12/02/2022 20:13:21 12/03/19 23 12/02/2022 COMPR EHENS SUNIL METAB OLIC PANEL GFR >60 Refer ence Range : [employer] ge GFR Healt hy Adult : >60 [...] or ethni c subgr oups, such as [facility] nics. Outsi de the valid ated irineo [...] calcu lator is avail able on the [facility] websi te: https ://zach w.kid yadi.o rg/pr ofess ional s/kdo qi/gf r_cal culat or Not Available [facility] (Lab) [address] [place], [address], 12/02/2022 20:13:21 12/03/19 23 12/02/2022 COMPR EHENS SUNIL METAB OLIC PANEL alkaline phosphatase 89 U/L 38-126 Not Available [facility] (Lab) [address] [place], [address], 12/02/2022 20:13:21 12/03/19 23 12/02/2022 COMPR EHENS SUNIL METAB OLIC PANEL alanine aminotransfe rase 29 U/L 0-50 Not Available [facility] (Lab) [address] [place], [address], 12/02/2022 20:13:21 12/03/19 23 12/02/2022 COMPR EHENS SUNIL METAB OLIC PANEL aspartate aminotransfe rase 26 U/L 15-46 Not Available [facility] (Lab) [address] [place], [address], 12/02/2022 20:13:21 12/03/19 23 12/02/2022 COMPR EHENS SUNIL METAB OLIC PANEL bilirubin, total 0.90 mg/dL 0.20-1 .30 Not Available [facility] (Lab) [address] [place], [address], 12/02/2022 20:13:21 12/03/19 23 12/02/2022 COMPR EHENS SUNIL METAB OLIC PANEL calcium 10.1 mg/dL 8.4-10 .2 Not Available [facility] (Lab) [address] [place], [address], 12/02/2022 20:13:21 12/03/19 23 12/02/2022 COMPR EHENS SUNIL METAB OLIC PANEL total protein 7.7 g/dL 6.3-8. 2 Not Available [facility] (Lab) [address] [place], [address], 12/02/2022 20:13:21 12/03/1912/02/2022 COMPR EHENS SUNIL METAB OLIC PANEL albumin 4.8 g/dL 3.4-5. 0 Not Available [facility] (Lab) [address] [place], [address], 12/02/2022 20:13:21 12/03/1912/02/2022 COMPR EHENS SUNIL METAB OLIC PANEL globulin 2.9 g/dL 2.6-4. 2 Not Available [facility] (Lab) [address] [place], [address], 12/02/2022 20:13:21 12/03/1912/02/2022 COMPR EHENS SUNIL METAB OLIC PANEL A/G ratio 1.7 ratio 1.0-2. 0 Not Available [facility] (Lab) [address] [place], [address], 12/02/2022 20:13:21 12/03/1912/02/2022 LIPID PANEL cholesterol 164 mg/dL 140-19 9 NIH ISSAC NSUS RECOM MENDA TION FOR LORNA STERO L: ADULT CHILD LOW RISK: <200 <170 BORDE RLINE : <200- 239 ----- HIGH RISK: >240 >200 Not Available [facility] (Lab) [address] [place], [address], 12/02/2022 20:13:25 12/03/19 23 12/02/2022 LIPID PANEL triglyceride s 55 mg/dL 0-150 NIH ISSAC NSUS REPOR T RECOM MENDA TION FOR TRIGL YCERI TARA: ADULT CHILD LOW RISK: <150 ----- BODER LINE: 150-1 99 ----- HIGH RISK: >200 ----- Not Available [facility] (Lab) [address] [place], [address], 12/02/2022 20:13:25 12/03/19 23 12/02/2022 LIPID PANEL HDL cholesterol 47 mg/dL 40- Not Available [facility] (Lab) [address] [place], [address], 12/02/2022 20:13:25 12/03/19 23 12/02/2022 LIPID PANEL [...] WILL NOT BE REPOR MARINA. Not Available [facility] (Lab) [address] [place], [address], 12/02/2022 20:13:25 12/03/19 23 12/02/2022 TSH W/REF EVER FT4 TSH with reflex free T4 2.210 uIU/m L 0.465- 4.680 Not Available [facility] (Lab) [address] [place], [address], 12/02/2022 20:42:21 12/03/1912/02/2022 HEMOG LOBIN A1C HA1C 4.7 % 4.0-6. 0 Diabe samm Scree yaw Crite armando: <5.7% Consi stent with absen ce of diabe samm 5.7-6 .4% Consi stent with incre ased risk for diabe samm (pred iabet es) >OR=6 .5% Consi stent with diabe samm REFER ENCE: Diabe samm Care 2016, 39(Juan ppl.1 ):s13 -s22 Not Available [facility] (Lab) [address] [place], [address], 12/02/2022 21:02:07 12/03/19 23 12/02/2022 VITAM IN B12 (ACOSTA NORA ) vb12 744 pg/mL 239-93 1 Not Available [facility] (Lab) [address] [place], [address], 12/02/2022 21:09:01 12/03/19 23 12/02/2022 FOLAT E, SERUM /PLAS MA folate 14.4 NG/mL 2.76-2 0.0 Not Available [facility] (Lab) [address] [facility] [place], [address], 12/02/2022 21:09:02 Result Notes None recorded. Problems Name Problem SNOMED Code Status Onset Date Resolution Date Notes Provider Name and Address Organization Details Recorded Time Indigestion 148602443 Active 2022 Johanna Chapa NP [address] [address], [place], [address], [employer] 12:44:30 Impacted cerumen of bilateral ears 9569348377609 108 Active 2022 Johanna Chapa NP [address], [address], [place], [address], [employer] 3 12:47:55 Mixed anxiety and depressive disorder 354007056 Active 2022 Johanna Chapa NP [address], [address] [facility], [place], [address], [employer] 3 12:50:01 Coffee ground vomiting 16561140 Active 2022 Johanna Chapa NP [address], [address], [place], [address], [employer] 13:01:30 Problem Notes None recorded. Medical Equipment [...] verbal numeric rating [Score] - Reported Systolic And Diastolic Provider Name and Address Organization Details Last Updated DateTime 41420.3 4 g 24.7 kg/m2 177.8 cm 96.6 [degF] 71 /min 98 % 98 % 0 118/78 mm[Hg] Johanna Joseph RN [facility] 12:24:12 Date Recorded Body height Provider Name an d Address Organization Details Last Updated DateTime 12/02/2022 177.8 cm Hawa Leija MA [facility] 12/02/2022 15:28:44 Social History Question Answer Notes LastModified by Organization Details LastModified Time Tobacco Smoking Status Former Smoker Johanna Joseph RN [facility], [facility] 11/29/2022 12:26:34 Do You Have An Advance Directive? No Information not available 11/29/2022 Is Blood Transfusion Acceptable In An Emergency? Yes Information not available 11/29/2022 What Is Your Level Of Caffeine Consumption? Moderate Dr. Alcaraz Information not available 11/29/2022 What Is Your Code Status? Full Code Information not available 11/29/2022 In The 14 Days Before Symptom Onset, Have You Had Close Contact With A Laboratory-confi rmed COVID-19 While That Case Was Ill? No Information not available 11/29/2022 In The 14 Days Before Symptom Onset, Have You Had Close Contact With A Person Who Is Under Investigation For COVID-19 While That Person Was Ill? No Information not available 11/29/2022 What Type Of Diet Are You Following? REGULAR Information not available 11/29/2022 Which Illicit Or Recreational Drugs Have You Used? Mj Information not available 11/29/2022 Have There Been Any Changes To Your Family Or Social Situation? No Information not available 11/29/2022 When Did You Quit Smoking? 1-5yearssincelastci roxanna Information not available 11/29/2022 Do You Use Insect Repellent Routinely? No Information not available 11/29/2022 Where Do You Live? SingleLevelHouse Information not available 11/29/2022 Do You Have A Medical Power Of Teacher Dancing? No Information not available 11/29/2022 How Many [...] Social Media? Yes Information not available 11/29/2022 Have You Recently Traveled Abroad? No Information not available 11/29/2022 Are You Currently In School? No Information not available 11/29/2022 Sex: Unknown Functional Status Question Answer Note LastModified by Organizat ion Details LastModified Time Do you use any illicit or recreational drugs? Yes Information not available 11/29/2022 Do you or have you ever used any other forms of tobacco or nicotine? Yes occassional Information not available 11/29/2022 What is your level of alcohol consumption? Moderate Information not available 11/29/2022 Are you currently employed? No Information not available 11/29/2022 Do you or have you ever used e-cigarettes or vape? Former user of electronic cigarettes Information not available 11/29/2022 What is your exercise level? None Information not available 11/29/2022 Mental Status Question Answer Note LastModified by Organization D etails LastModified Time Do you feel stressed (tense, restless, nervous, or anxious, or unable to sleep at night)? [id number] Information not available 11/29/2022 Family History Relationship Description Onset Age of this Age Resolved Age Notes LastModified by Organization Details LastModified Time Father Malignant neoplasm of testis 30 [email or web address] Not available 2022 12:34:35 Maternal Grandfather Malignant neoplasm of prostate [email or web address] Not available 2022 12:35:04 [...] HEARING PROBLEMS N MUMPS N SHINGLES N FEMALE PROBLEMS / INFECTIONS N DEPRESSION (INCLUDING POST ) N BOWEL PROBLEMS N FAILED BACK SYNDROME N STROKE/TIA N THYROID DISEASE N ULCERS N BENIGN PROSTATIC HYPERPLASIA N MEASLES N CERVICALGIA N TB SKIN TEST N HYPOTENSION N MYOCARDIAL INFARCTION N PARAPELGIA N OBESITY [...] BLEEDING N BLOOD CLOTS N ASTHMA N CATARACTS N Abdominal Pain N ERECTILE DYSFUNCTION N ARTERIAL INSUFFICIENCY N GI PROBLEMS N CHF N Low Testosterone N NEUROPATHY N INFERTILITY N AIDS/HIV N FRACTURES N CHEMOTHERAPY / RADIATION N VISION/EYE PROBLEMS N LIVER DISEASE N HYPERTENSION N TOURETTE'S N ANXIETY DISORDER N BLOOD TRANSFUSION N ANEMIA/BLOOD DISORDER N CHRONIC EAR INFECTIONS N BRONCHITIS N TUBERCULOSIS N GLAUCOMA N FOOT PROBLEM N DIVERTICULITIS N SLEEP APNEA N CHICKENPOX N ALLERGIES/HAYFEVER N BACK INJECTIONS N INFECTIOUS DISEASE N PROSTATE N HEART ARRHYTHMIA N ESRD N INSOMNIA N HIGH CHOLESTEROL / HYPERLIPIDEMIA N EYE PROBLEMS N HYPERTHYROIDISM N PVD N EATING DISORDER N EDEMA N CHRONIC PAIN SYNDROME N CONSTIPATION N CAROTID BLOCKAGE N BACK / NECK PROBLEMS N HAVE YOU BEEN HOSPITALIZED OR SEEN IN [facility] IN THE PAST YEAR ? N [...] DISORDER N ALZHEIMER'S DISEASE N PAIN N DEMENTIA N HERPES N SEIZURES/EPILEPSY N HEADACHES/MIGRAINES N VASCULAR DISEASE N PACEMAKER N DIZZINESS N KIDNEY DISEASE N HEART DISEASE/HEART PROBLEMS N SCARLET FEVER N MULTIPLE SCLEROSIS N MENTAL DISORDER/ILLNESS N DEVELOPMENTAL OR BEHAVIORAL DISORDERS N NEUROPSYCHOLOGICAL N CANCER: SPECIFY N CARDIAC ARRHYTHMIA N PNEUMONIA N ATRIAL FIBRILLATION N Gall Stones N PULMONARY EMBOLISM N AUTOIMMUNE DISEASE N Immunizations Vaccine Type Date Status Note Provider Nam e and Address Organization Details Recorded Time Tdap 11/29/2022 completed ANDRZEJ Lofton, [facility] 11/29/2022 14:34:18 Influenza, split virus, quadrivalent, PF 11/29/2022 completed ANDRZEJ Lofton, [facility] 11/29/2022 14:34:18 Past Encounters Encounter ID Performer Location Encounter Start Date Encounter Closed Date Diagnosis/Indication Diagnosis SNOMED-CT Code Diagnosis ICD10 Code Diagnosis IMO Codes Diagnosis Note [id number] Johanna Chapa NP [facility] [address] [address] 11/29/2022 12:14:14 11/29/2022 13:51:14 Administration of diphtheria, pertussis, and tetanus vaccine 332529294 Z23 Administra tion of influenza vaccine 80714981 Z23 Indigestion 003330492 K3 0 start on pepcid once daily. If that doesn't work, will need to eat bland diet. Impacted c erumen of bilateral ears 3699260818 052264 H61.23 treat at home. Anemia screening 5570132 07 Z13.0 Diabetes m ellitus screening 526906247 Z13.1 Thyroid di sorder screening 624072546 Z13.29 Hyperlipid emia screening 464130437 Z13.220 Mixed anxi ety and depressive disorder 277736951 F41.8 Counseling referral- pt to check insurance for options. Coffee chadd und vomiting 91759319 K92.0 referring to gi [id number] Johanna Chapa NP [facility] [address] [address] 12/02/2022 14:14:44 12/02/2022 15:29:05 Health Concerns Section Related Observation LastModified by Organization Detai ls LastModified Time None Recorded Concern Status LastModified by Organization Details LastModified Time None Recorded Advance Directives Directive N: Payers Insurance Date Sequence Insurance Name Policy Number Policy Salamanca Covered Member ID Salamanca Member ID Guarantor Name 04/19/2024 [facility] Reg Crawford SELF SELF Reg Crawford 04/19/2024 1 [facility] - DOS PRIOR TO 2024 (MEDICAID REPLACEMENT - HMO) [id number] Reg Crawford [id number] Reg Crawford Notes Date Note Type [...] days. Did go on a trip to [place] and was vomiting a lot. Had some [...] Anxiety/depressio n- Started in highschool. lots going on. Has talked with others in the past but never committed to therapy. Father states he has issues and therefore is unemployed. Never been on meds and no thoughts of Si/HI. Still wanting to finish school, was doing online program through [employer] and states it's the only program that makes sense right now. Father has some concerns that in person schooling would be more beneficial. Johanna Chapa NP [address] [facility], [facility] [address], [place], [address], [facility] 11/29/2022 13:07:31
--- OUTSIDE RECORDS SUMMARY | 2025-01-11 08:56 | XMS_ITS | Clinical Summary ---
Author Organization [facility] Address [address] [place] [address] Care Team Providers Care Motor Coach Driver Name Role Phone Unavailable Primary Care Provider [...] of 3 - 19+ 3-dose series) 08/20/2015 HPV Vaccines (1 - 3-dose SCD M series) 08/20/2023 COVID-19 Vaccine ( - 2024-2 6 season) 2024 Influenza Adult (#1) 2024 Hepatitis A Vaccines Aged Out No long er eligible based on patient's age to complete this topic Meningococcal B Vaccine Aged Out No l onger eligible based on patient's age to complete this topic Meningococcal Vaccine Aged Out No heladio omid eligible based on patient's age to complete this topic Pneumococcal Vaccine: Pediat rics (0 to 5 Years) and At-Risk Patients (6 to 49 Years) Aged Out No longer eligible b ased on patient's age to complete this topic RSV Immunizations Under 20 Months Aged Out No longer eligible based on patient's age to complete this topic
--- OUTSIDE RECORDS SUMMARY | 2025-01-11 08:56 | XMS_ITS | Patient Health Record ---
Author Organization [facility] [address] Address [address] [facility] [address] [place] [address] Care Team Providers Care Mixing And Dispensing Supervisor Name Role Phone Suzanne Huff Unavailable [phone] Reason For Referral No Information Medications Medication SIG (Take, Route, Frequency, Duration) Notes Start Date End Date Status FLUZONE QUAD (PF) 60 MCG (15 MCG X 4)/0.5 ML IM SYRINGE *Reorder from [employer] for eRx and Interaction Alerts* 05/12/2020 Active Adderall XR 15 MG Capsule Extended Release 24 Hour Oral 05/12/2020 Active BOOSTRIX TDAP 2.5-8-5 Lf-mcg-Lf/0.5mL Suspension Intramuscular *Reorder from [employer] for eRx and Interaction Alerts* 05/12/2020 Active Triamcinolone Acetonide 0.1 % Paste Mouth/Throat 05/12/2020 Active Immunizations Vaccine Route Administration Date Status Comme nts Tdap Unknown 09/27/2018 Administered Social History Social History Additional Details Category Social Info Options Details Migrated Social History Migrated Social History Alcohol Intake: Moderate 12/31/2019,Tobacco Years: Current some days smoker 12/31/2019,Smoking Status: 4 12/31/2019 Plan Of Treatment No Information Insurance Providers Payer Name Payer Address Payer Phone Subscriber Number Group Number Insured Name Patient Relationship to Insured Coverage Start Date Coverage End Date Bcbs-Ca do not use [address] [place] [phone] [id number] JAIMIE COATES Natural Child - Insured has Financial Responsibility
[2025-01-11 09:00] VITALS: BP 127/90; PULSE 89; RESP 16; TEMP 36.4; O2SAT 96
--- NOTE | 2025-01-11 09:28 | ED_ITS ---
HPI - Head Injury General Chief complaint: Head Injury Stated complaint: head injury 2 days ago, GARCIA Time Seen by Provider: 01/11/25 09:23 Source: patient Mode of arrival: ambulatory Limitations: no limitations History of Present Illness HPI Narrative: This is a 29-year-old male who presents the ED for headache. Patient states that 2 days ago, he stood up and hit his head on the refrigerator door. Since then he has been having a left-sided headache. He has not taken anything for it. Is concerned that the may be a bleed. Denies changes in vision, numbness, tingling, weakness. The pain is radiating down his forehead. He is not on any blood thinners. Related Data Allergies Allergy/AdvReac Type Severity Reaction Status Date / Time Cultivated Oat Pollen Allergy Mild Uncoded 03/13/16 14:10 Molds and Smuts Allergy Mild Uncoded 03/13/16 14:10 NKDA Allergy Mild Uncoded 03/16/09 17:50 [place] Tree Allergy Mild Uncoded 03/13/16 14:10 PET DANDER Allergy Mild Uncoded 03/16/09 17:50 Review of Systems Review of Systems: Gen.: Denies fevers or chills Eyes: Denies eye pain or visual change ENT: Denies congestion Respiratory: Denies shortness of breath or cough CV: Denies chest pain or palpitations GI: Denies abdominal pain nausea, emesis or diarrhea denies burning, urgency, frequency or hematuria Musculoskeletal: Denies back pain or muscle pain Neuro: Denies numbness, tingling, weakness or focal weakness Skin: Denies rash Except as documented, all other systems reviewed and negative [facility] Social History Social History Smoking status: Never smoker Alcohol intake: current Exam Narrative: APPEARANCE: No acute distress, nontoxic, resting in bed EYES: EOMI HEENT: Normocephalic,OMM. Mild tenderness to the anterior aspect of the left parietal scalp without hematoma or laceration. RESPIRATORY: No respiratory distress Clear to auscultation bilaterally with no rhonchi wheezing or rales. CARDIOVASCULAR: Regular rate and rhythm without murmurs rubs or gallops. ABDOMINAL: Soft, nontender, nondistended, no rebound or guarding MUSCULOSKELETAl: Moves all extremities. No clubbing, cyanosis or edema. NEURO: Awake and alert. Following commands, speech normal, no focal deficits SKIN:: Warm, dry. No rashes lesions or abrasions PSYCHIATRIC: Normal affect/mood, Course Vital Signs Vital signs: Vital Signs Temperature 97.6 F 01/11/25 09:00 Pulse Rate 89 01/11/25 09:00 Respiratory Rate 16 01/11/25 09:00 Blood Pressure 127/90 01/11/25 09:00 Pulse Oximetry 96 01/11/25 09:00 Oxygen Delivery Room Air 01/11/25 09:00 Temperature 97.6 F 01/11/25 09:00 Pulse Rate 89 01/11/25 09:00 Respiratory Rate 16 01/11/25 09:00 Blood Pressure 127/90 01/11/25 09:00 Pulse Oximetry 96 01/11/25 09:00 Oxygen Delivery Room Air 01/11/25 09:00 MDM - Head Injury MDM Narrative Medical decision making narrative: 29-year-old male Presenting for head injury. On initial evaluation patient was in no acute distress afebrile, hemodynamic stable. Differentials include but are not limited to: Concussion, closed head injury, low suspicion for intracranial hemorrhage, epidural hematoma, subdural hematoma Notable exam findings: Nonfocal neuro exam. Very mild tenderness over the left parietal scalp. Patient had no loss consciousness and he has been acting himself. He has a nonfocal neuro exam. Advanced imaging is not indicated at this time. Patient was reassured that he may have had a mild concussion and likely has a headache due to that injury. He was educated on Tylenol and ibuprofen use. He was advised follow-up with his PCP in the next week for re-evaluation. Patient was agreeable to this plan. Given strict return precautions. Medical Records Attestation: I reviewed the patient's medical records. Discharge Plan Discharge Clinical Impression: Closed head injury Qualifiers: Encounter type: initial encounter Qualified Code(s): S09.90XA - Unspecified injury of head, initial encounter Patient Disposition: Home Condition: Stable Instructions: Antibiotic Form, Head Injury (ED) Additional Instructions: It is extraordinarily unlikely that you have a brain bleed. You may take Tylenol and ibuprofen for your pain. Follow-up with your PCP in the next week for re-evaluation. Return to the ED for any new or worsening symptoms. Patient Language: Yoruba Prescriptions: No Action omeprazole 10 mg capsule,delayed release(DR/EC) 10 mg PO DAILY Qty: 30 0RF Follow-up/Referrals: UNKNOWN,DOCTOR [Non-Staff]
[2025-01-11] MEDS: KETOROLAC 30 MG/ML VIAL (*BKC) IM (09:36)
--- OUTSIDE RECORDS SUMMARY | 2025-01-11 09:37 | XMS_ITS | Clinical Summary ---
Author Organization 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 Role Phone Unavailable Primary Care Provider Unavailabl e Social History Tobacco Use Types Packs/Day Years Used Date Smoking Tobacco: Never Assessed Sex and Gender Information Value Date Recorded Sex Assigned at Not on file Legal Sex Male 12:23 PM HEEL [employer] Gender Identity Not on file Sexual Orientation Not on file Plan of Treatment Health Maintenance Due Date Last Done Comments Hepatitis C Virus (HCV) Screening 1996 Influenza Immunization (#1) 10/28/202410/28, 01/19/2015, 12/20/2013, Additional history exists SARS-COV-2 Immunization ( season) 2024 Respiratory Syncytial Virus (RSV) Immunization (Adult) (1 - 1-dose 75+ series) 08/20/2071 Hepatitis B Immunization Completed 997, 1996, 1996 Human Papillomavirus (HPV) Immunization Completed 08/23/2012, 03/01/2012, 12/22/2011 Meningococcal Immunization (ACWY) Completed 08/23/2012, 10/04/2007 DTaP/Tdap/Td Immunization Discontinued 2018, 10/04/2007, 06/23/2001, Additional history exists TdaP Immunization Completed 10/12/2018, 10/04/2007 Pneumococcal Immunization Combined Aged Out No longer eligible based on patient's age to complete this topic Rotavirus Immunization Aged Out No lo nger eligible based on patient's age to complete this topic
== END 2025-01-11 09:40 | disposition home or self-care (01) ==
PROVIDERS: Emergency Provider Student in an Organized Health Care Education/Training Program
DX: S09.90XA Unspecified injury of head, initial encounter (principal); W22.8XXA Striking against or struck by other objects, initial encounter
CPT/HCPCS: 96372; 99283; J1885